=== PATIENT | female | born 1930 | race African-American/Black ===

== ENCOUNTER 2018-10-01 15:00 | Emergency (ER) | payer OTHER, BC ==
[2018-10-01 15:08] VITALS: TEMP 98.8; BMI 28.1
--- NOTE | 2018-10-01 15:42 | PDOC ---
History of Present Illness - General Chief Complaint: Blood Pressure Problem Stated Complaint: LT UNDER PAIN, HIGH BLOOD PRESSURE Time Seen by Provider: 10/01/18 15:12 History Source: Patient - History of Present Illness Initial Comments: 10/01/18 16:14 88F pmh of hypertension presents to the ED for left sided chest wall pain under her left arm. She states that she pulled a muscle 3 weeks ago while lifting a heavy object, saw her doctor bella next day who confirmed she had pulled a muscle. She is back today because she realized that the area had darkened and is now tender. Incidentally she was found to have a elevated blood pressure in triage 229/116. She states that she is compliant to m,edication (Benicar and hydralizine) but that she refuses the additional medication her doctor prescribed her as she's "spending enough time urinating as it is" She denies headache, change in vision, chest pain, neck pain, dysuria. 10/01/18 17:32 Past History - Past Medical History Allergies/Adverse Reactions: Allergies Allergy/AdvReac Type Severity Reaction Status Date / Time benoxinate HCl [From Fluress] Allergy Intermediate Itching Verified 10/01/18 15: 08 fluorescein sodium Allergy Intermediate Itching Verified 10/01/18 15:08 [From Fluress] Penicillins Allergy Mild Rash Verified 10/01/18 15:08 Home Medications: Ambulatory Orders Amlodipine Besylate [Norvasc] 5 mg PO BID 10/02/12 Aspirin 81 mg PO DAILY 10/02/12 Atenolol [Tenormin] 25 mg PO DAILY 10/02/12 Latanoprost [Xalatan] 1 gtt OU HS 10/02/12 Anemia: No Asthma: No Cancer: No Cardiac Disorders: No CVA: No COPD: No CHF: No Dementia: No Diabetes: No GI Disorders: Yes (DIVERTICULOSIS AND COLONIC POLYP) Disorders: No HTN: Yes Hypercholesterolemia: No Liver Disease: No Seizures: No Thyroid Disease: No Other medical history: arthritis - Surgical History Abdominal Surgery: No Appendectomy: No Cardiac Surgery: No Cholecystectomy: No Lung Surgery: No Neurologic Surgery: No Orthopedic Surgery: Yes (RIGHT KNEE ARTHROSCOPIC SURGERY 1996) - Suicide/Smoking/Psychosocial Hx Smoking History: Never smoked Have you smoked in the past 12 months: No Information on smoking cessation initiated: No Hx Alcohol Use: No Drug/Substance Use Hx: No Substance Use Type: None Hx Substance Use Treatment: No Review of Systems - Review of Systems Able to Perform ROS?: Yes Is the patient limited Tajik proficient: No Constitutional: No: Symptoms Reported HEENTM: No: Symptoms Reported Respiratory: No: Symptoms reported Cardiac (ROS): No: Symptoms Reported ABD/GI: No: Symptoms Reported : No: Symptoms Reported Musculoskeletal: Yes: Symptoms Reported, See HPI Integumentary: No: Symptoms Reported Neurological: No: Symptoms reported All Other Systems: Reviewed and Negative *Physical Exam - Vital Signs Last Vital Signs Temp Pulse Resp BP Pulse Ox 98.8 F 74 19 229/116 H 95 10/01/18 15:06 10/01/18 15:06 10/01/18 15:06 10/01/18 15:06 10/01/18 15:06 - Physical Exam General Appearance: Yes: Nourished, Appropriately Dressed. No: Apparent Distress HEENT: positive: EOMI, MELIDA, Normal ENT Inspection Respiratory/Chest: positive: Chest Tender (left submidaxillary 5cm x 5cm ), Lungs Clear, Normal Breath Sounds. negative: Respiratory Distress Cardiovascular: positive: Irregularly Irregular Gastrointestinal/Abdominal: positive: Normal Bowel Sounds, Flat, Soft. negative : Tender Musculoskeletal: positive: Normal Inspection. negative: CVA Tenderness Extremity: positive: Normal Capillary Refill, Normal Inspection, Normal Range of Motion Neurologic: positive: Fully Oriented, Alert, Normal Mood/Affect, Normal Response , Motor Strength 5/5 ED Treatment Course - LABORATORY CBC & Chemistry Diagram: 10/01/18 16:00 10/01/18 16:00 Medical Decision Making - Medical Decision Making 10/01/18 17:54 88 F with chest pain. Found to be hypertensive to >220 systolic in ED. Dissection vs ACS vs CHF Will r/o dissection due to symptoms of Severe hypertension and chest pain however we will also check ekg and trtops as well as cxr and bnp for chf. All labs WNL. CXR has some prominence of mediastinum. Will obtain CTA chest to r/o dissection. 10/01/18 18:55 CTA read pending,. Patient signed out to Dr. Gale *DC/Admit/Observation/Transfer Diagnosis at time of Disposition: Hypertensive urgency - Referrals Referrals: Raz Suggs MD [Primary Care Provider] - - Patient Instructions - Post Discharge Activity
[2018-10-01 16:13] LABS: HEMATOCRIT 36.7 % (32.4-45.2); HEMOGLOBIN 12.4 GM/dL (10.7-15.3); MCH 29.6 pg (25.7-33.7); MCHC 33.8 g/dl (32.0-36.0); MEAN CELL VOLUME 87.4 fl (80-96); MEAN PLT VOLUME 7.8 fl (7.5-11.1); PLATELET COUNT 165 K/MM3 (134-434); RDW 15.9 % (11.6-15.6)
[2018-10-01 16:26] LABS: INR 1.12 (0.83-1.09); PROTHROMBIN TIME (PATIENT) 13.2 SEC (9.7-13.0)
[2018-10-01 17:05] LABS: ALK PHOS 76 U/L (45-117); ANION GAP 8 MMOL/L (8-16); BILIRUBIN,TOTAL 0.5 mg/dL (0.2-1); BLOOD UREA NITROGEN 24 mg/dL (7-18); CHLORIDE 104 mmol/L (98-107); CO2 26 mmol/L (21-32); CREATININE 1.2 mg/dL (0.55-1.3); GLUCOSE,RANDOM 92 mg/dL (74-106); POTASSIUM 4.4 mmol/L (3.5-5.1); SGOT/AST 18 U/L (15-37); SGPT/ALT 15 U/L (13-61); SODIUM 138 mmol/L (136-145); TOT PROT 6.7 g/dl (6.4-8.2)
--- NOTE | 2018-10-01 17:20 | PDOC ---
Documentation entered by Louise Torre SCRIBE, acting as scribe for Humberto Machuca MD. Attending Attestation - Resident Resident Name: Zach Saavedra - ED Attending Attestation I have performed the following: I have examined & evaluated the patient, The case was reviewed & discussed with the resident, I agree w/resident's findings & plan, Exceptions are as noted - HPI HPI: 10/01/18 16:32 The patient is an 88 year old female, with a significant PMH of HTN, who presents to the emergency department for evaluation of left sided chest pain. Pt describes the pain as a "sorenesss" radiating from her L anterior chest to her L armpit. Pt states that it started about 4 days ago. Denies any SOB at rest but endorses WERNER. Denies leg swelling. The patient denies shortness of breath, headache and dizziness. Denies fever, chills, nausea, vomit, diarrhea and constipation. Denies dysuria, frequency, urgency and hematuria. Allergies: benoxinate HCl, fluorescein sodium, penicillin Social history: None reported - Physicial Exam PE: 10/01/18 17:12 "GENERAL: Awake, alert, and fully oriented, in no acute distress. HEAD: No signs of trauma EYES: PERRLA, EOMI, sclera anicteric, conjunctiva clear ENT: Auricles normal inspection, hearing grossly normal, nares patent, oropharynx clear without exudates. Moist mucosa NECK: Nontender, no stepoffs, Normal ROM, supple, no lymphadenopathy, JVD, or masses LUNGS: Breath sounds equal, clear to auscultation bilaterally. No wheezes, and no crackles HEART: Regular rate and rhythm, normal S1 and S2, no murmurs, rubs or gallops ABDOMEN: Soft, nontender, normoactive bowel sounds. No guarding, no rebound. No masses EXTREMITIES: Normal range of motion, no edema. No clubbing or cyanosis. No cords, erythema, or tenderness NEUROLOGICAL: Cranial nerves II through XII intact. 5/5 strength and sensation in all extremities, Normal speech, normal gait, normal cerebellar function SKIN: Warm, Dry, normal turgor, no rashes or lesions noted. - Medical Decision Making 10/01/18 17:12 88 F with chest pain. Found to be hypertensive to >220 systolic in ED. Will need to r/o dissection given severe HTN and chest pain. Will also r/o ACS vs CHF. - Labs, trop, BNP - CTA chest/abd/pelvis 10/01/18 18:01 Labs notable for elevated BNP, trop negative x1 Pt took home hydralazine while in ED, BP now improved to 190s systolic. Will hold further anti-HTN at this time as pt is asymptomatic and this is likely her baseline BP. Humberto Machuca MD: This documentation has been prepared by the Yelitza de la torre Sammi, SCRIBE, under my direction and personally reviewed by me in its entirety. I confirm that the documentation accurately reflects all work, treatment, procedures, and medical decision making performed by me.
[2018-10-01 18:17] LABS: PH,URINE 5.5 (5.0-8.0); URINE APPEARANCE CLEAR; URINE BILIRUBIN NEGATIVE (NEGATIVE); URINE COLOR YELLOW; URINE GLUCOSE (UA) NEGATIVE (NEGATIVE); URINE KETONE NEGATIVE (NEGATIVE); URINE LEUK ESTERASE NEGATIVE (NEGATIVE); URINE NITRITE NEGATIVE (NEGATIVE); URINE PROTEIN NEGATIVE (NEGATIVE); URINE UROBILINOGEN 0.2 mg/dL (0.2-1.0)
--- NOTE | 2018-10-01 19:16 | PDOC ---
*Physical Exam - Vital Signs Last Vital Signs Temp Pulse Resp BP Pulse Ox 98.8 F 74 19 229/116 H 95 10/01/18 15:06 10/01/18 15:06 10/01/18 15:06 10/01/18 15:06 10/01/18 15:06 - Physical Exam Comments: 10/01/18 19:47 Awake, alert, verbal Lungs CLTA B/L S1/S2, no M/R/G Abdomen: no pulsatile mass, soft, non-tender ED Treatment Course - LABORATORY CBC & Chemistry Diagram: 10/01/18 16:00 10/01/18 16:00 - ADDITIONAL ORDERS Additional order review: Laboratory Results 10/01/18 10/01/18 10/01/18 18:00 16:00 16:00 PT with INR INR PTT (Actin FS) Sodium Potassium Chloride Carbon Dioxide Anion Gap BUN Creatinine Creat Clearance w eGFR Random Glucose Calcium Total Bilirubin AST ALT Alkaline Phosphatase Troponin I 0.02 B-Natriuretic Peptide 1476.8 H Total Protein Albumin Urine Color Yellow Urine Appearance Clear Urine pH 5.5 Ur Specific [place] 1.008 L Urine Protein Negative Urine Glucose (UA) Negative Urine Ketones Negative Urine Blood Negative Urine Nitrite Negative Urine Bilirubin Negative Urine Urobilinogen 0.2 Ur Leukocyte Esterase Negative 10/01/18 10/01/18 16:00 16:00 PT with INR 13.20 H INR 1.12 H PTT (Actin FS) 30.0 Sodium 138 Potassium 4.4 Chloride 104 Carbon Dioxide 26 Anion Gap 8 BUN 24 H Creatinine 1.2 Creat Clearance w eGFR 42.40 Random Glucose 92 Calcium 9.0 Total Bilirubin 0.5 AST 18 ALT 15 Alkaline Phosphatase 76 Troponin I B-Natriuretic Peptide Total Protein 6.7 Albumin 4.0 Urine Color Urine Appearance Urine pH Ur Specific [place] Urine Protein Urine Glucose (UA) Urine Ketones Urine Blood Urine Nitrite Urine Bilirubin Urine Urobilinogen Ur Leukocyte Esterase 10/01/18 16:00 RBC 4.20 MCV 87.4 MCHC 33.8 RDW 15.9 H MPV 7.8 Medical Decision Making - Medical Decision Making 10/01/18 19:13 Patient signed out by Dr. Saavedra (Resident) and under the care of Dr. Jimenez ( Attending) The patient is an 88 year old female with chest pain, h/o HTN w/non-adherence to medication. At presentation patient hypertensive (> 220 SBP). S/p home Hydralazine BP 190's; Elevated BNP, Trop (-) x1. Awaiting formal CTA read to r /o dissection 10/01/18 19:[address] Cruz (radiology) - patient has an intramural hematoma in the descending aorta Patient assessed @ bedside, continues deny active chest pain Right BP: 212/98 Left BP: 229/110 2+ radial and DP pulses 10/01/18 19:35 Labetalol 10 mg Esmolol Drip 50 mcg/kg Attending paged CardioThoracic Surgery 10/01/18 19:43 S/p Labetalol BP 179/94 10/01/18 19:48 Case d/w Dr. Wood (Thoracic Surgery) - states patient requires cardio- thoracic surgery; reccomend Dr. Sung ([place]) or transfer to [facility] 10/01/18 20:02 BP 188/94 Clinical condition and risks/benefits of transfer discussed with patient - amenable to transfer 10/01/18 20:09 Case d/w [facility] - recommends vascular as institutional policy to not operate on descending aorta; 10/01/18 20:18 Esmoll drip hanging BP 180/92 - BP goal 140/90 Patient signed transfer paperwork 10/01/18 20:21 Case d/w Vascular Surgery - Dr. Bella; accepts patient for transfer 10/01/18 20:24 Dr. Donahue - CT fellow from [facility]; confirms case should go to vascular 10/01/18 20:26 Case d/w Dr. Altamirano - [facility] ED ([facility] [place]) 10/01/18 20:26 Repeat BP 193/94 10/01/18 20:36 Case d/w Dr. Cortes, [facility] ED - accepts for transfer BP goal MAP of 80 10/01/18 20:43 Case d/w [facility] transfer center Code Red; ETA 20 minutes *DC/Admit/Observation/Transfer Diagnosis at time of Disposition: Hypertensive urgency - Referrals Referrals: Raz Suggs MD [Primary Care Provider] - - Patient Instructions - Post Discharge Activity
[2018-10-01] MEDS ORDERED: LABETALOL HCL 5 MG/1 ML (100MG/20 ML VIAL) IVPUSH ONE (19:30)
[2018-10-01] MEDS ORDERED: LABETALOL HCL 5 MG/1 ML (200MG/40ML VIAL) IVPB ONE (19:35)
[2018-10-01] MEDS ORDERED: ESMOLOL 2500 MG/250 ML 2,500,000 MCG/250 ML INFUS.BAG IVPB SCH (19:45)
--- NOTE | 2018-10-01 19:55 | PDOC ---
*Physical Exam - Vital Signs Last Vital Signs Temp Pulse Resp BP Pulse Ox 98.8 F 74 19 229/116 H 95 10/01/18 15:06 10/01/18 15:06 10/01/18 15:06 10/01/18 15:06 10/01/18 15:06 ED Treatment Course - LABORATORY CBC & Chemistry Diagram: 10/01/18 16:00 10/01/18 16:00 - ADDITIONAL ORDERS Additional order review: Laboratory Results 10/01/18 10/01/18 10/01/18 18:00 16:00 16:00 PT with INR INR PTT (Actin FS) Sodium Potassium Chloride Carbon Dioxide Anion Gap BUN Creatinine Creat Clearance w eGFR Random Glucose Calcium Total Bilirubin AST ALT Alkaline Phosphatase Troponin I 0.02 B-Natriuretic Peptide 1476.8 H Total Protein Albumin Urine Color Yellow Urine Appearance Clear Urine pH 5.5 Ur Specific [place] 1.008 L Urine Protein Negative Urine Glucose (UA) Negative Urine Ketones Negative Urine Blood Negative Urine Nitrite Negative Urine Bilirubin Negative Urine Urobilinogen 0.2 Ur Leukocyte Esterase Negative 10/01/18 10/01/18 16:00 16:00 PT with INR 13.20 H INR 1.12 H PTT (Actin FS) 30.0 Sodium 138 Potassium 4.4 Chloride 104 Carbon Dioxide 26 Anion Gap 8 BUN 24 H Creatinine 1.2 Creat Clearance w eGFR 42.40 Random Glucose 92 Calcium 9.0 Total Bilirubin 0.5 AST 18 ALT 15 Alkaline Phosphatase 76 Troponin I B-Natriuretic Peptide Total Protein 6.7 Albumin 4.0 Urine Color Urine Appearance Urine pH Ur Specific [place] Urine Protein Urine Glucose (UA) Urine Ketones Urine Blood Urine Nitrite Urine Bilirubin Urine Urobilinogen Ur Leukocyte Esterase 10/01/18 16:00 RBC 4.20 MCV 87.4 MCHC 33.8 RDW 15.9 H MPV 7.8 - Medications Given in the ED: ED Medications Discontinued Medications Generic Name Dose Route Start Last Admin Trade Name Freq PRN Reason Stop Dose Admin Labetalol HCl 10 mg 10/01/18 19:30 10/01/18 19:42 Normodyne Injection - IVPUSH 10/01/18 19:31 10 mg ONCE ONE Administration Medical Decision Making - Medical Decision Making 10/01/18 18:[address] Machuca Briefly, pt presents to ED with LSCP, now resolved BP elevated, currently pending CTA dissection protocol 10/01/18 19:[address] Rodriges, pt with subacute to acute descending aortic intramural hematoma New compared to imaging from 2010 Pt re-evaluated, denies pain currently, wants to go home Results of CTA explained to patient who is willing to stay 2nd IV placed RUE BP: 212/98 LUE BP: 229/110, HR 84 Dr. Winchester (thoracic surgery) consulted, awaiting call back Labetalol 10mg IV push given while esmolol gtt prepared, BP down 10/01/18 19:[address] Winchester, recommends transfer to [facility] He recommends MAP of 80 BP down to 179/100, esmolol gtt started at this time, 50mcg/kg/min Pt remains asymptomatic [facility] center is being called at this time 10/01/18 20:30 Pt accepted to [facility] Pt remains asymptomatic BP 168/120, gtt now at 100mcg/kg/min Awaiting transportation (code red) 10/01/18 21:04 BP down to 180/90 HR 50s-60s Remains asymptomatic [facility] team here for transport to [facility] 10/01/18 21:15 No CDs made with images as no blood bank booking clerk today Report provided, images sent to [facility] through PACS [facility] can no longer wait for CD to be made due to code red status Pt transported to [facility] *DC/Admit/Observation/Transfer Diagnosis at time of Disposition: Hypertensive urgency - Discharge Dispostion Disposition: TRANSFER ACUTE CARE/OTHER HOSP - Referrals Referrals: Raz Suggs MD [Primary Care Provider] - - Patient Instructions - Post Discharge Activity - Transfer to Acute Care Facility Receiving Facility: [facility] - Attestations Physician Attestion: 10/01/18 21:05 I, Dr. Jesus Jimenez MD, attest that this document has been prepared under my direction and personally reviewed by me in its entirety. I further attest, that it accurately reflects all work, treatment, procedures and medical decision -making performed by me.
[2018-10-02 02:11] VITALS: BP 170/93; PULSE 56
--- NOTE | 2018-10-02 11:05 | EKG ---
Test Reason : Blood Pressure : / mmHG Vent. 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
== END 2018-10-01 21:30 | disposition short-term general hospital (02) ==
LOC: JER 15:00
PROC: 3E033GC Introduction of Other Therapeutic Substance into Peripheral Vein, Percutaneous Approach (ICD-10-PCS; principal; 2018-10-01)
PROC: 3E033GC Introduction of Other Therapeutic Substance into Peripheral Vein, Percutaneous Approach (ICD-10-PCS; 2018-10-01)
DX: I16.0 Hypertensive urgency (principal); I71.01 Dissection of thoracic aorta; Z87.19 Personal history of other diseases of the digestive system; Z88.0 Allergy status to penicillin; Z88.8 Allergy status to other drugs, medicaments and biological substances
CPT/HCPCS: 36415; 71045-TC-FY; 71275-TC; 74177-TC; 80053; 81003; 83880; 84484; 85027; 85610; 85730; 87086; 93005; 93010; 96374; 96375; 99284-25

== ENCOUNTER 2019-02-04 05:33 | Inpatient (IN) | payer OTHER, BC ==
[2019-02-04 05:46] VITALS: BMI 27.1
--- NOTE | 2019-02-04 05:58 | PDOC ---
Attending Attestation - Resident Resident Name: Phillip Díaz - ED Attending Attestation I have performed the following: I have examined & evaluated the patient, The case was reviewed & discussed with the resident, I agree w/resident's findings & plan - HPI HPI: 02/04/19 06:08 Pt fell in her hallway as she was walking to the bath. She is otherwise ok. States that she hit her left side, the side that was operated on 2 weeks ago. 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 - Physicial Exam PE: 02/04/19 06:09 Agree with resident exam. Pt is afebrile. She has normal mental status. She has swelling in the left leg, s/p surgery. No calf tenderness bilaterlly. Pt has steristreps at the left lateral hip and left lateral knee where she had surgery - Medical Decision Making 02/04/19 06:11 XR hip and femur and XR pelvis Pt will be signed out to the day team and they will aadmit her.
--- NOTE | 2019-02-04 06:15 | PDOC ---
History of Present Illness - General Chief Complaint: Injury Stated Complaint: FALL/PAIN AFTER SURGERY Time Seen by Provider: 02/04/19 05:56 History Source: Patient Exam Limitations: No Limitations - History of Present Illness Initial Comments: 02/04/19 06:08 Gala Jc is an 88F with PMH lung cancer with L femoral mets s/p IM nail placement 2 weeks ago here for fall from standing. Patient went to bathroom this morning with walker but tripped and fell onto her left side in the hallway. Now complains of L hip and buttock pain. Denies prodome sx, LOC, injury to head. Denies injury or pain to ribs, arms, legs. Has follow-up with her ortho surgeon tomorrow, Dr. Colin at [facility]. Past History - Past Medical History Allergies/Adverse Reactions: Allergies Allergy/AdvReac Type Severity Reaction Status Date / Time benoxinate HCl [From Fluress] Allergy Intermediate Itching Verified 02/04/19 05: 46 fluorescein sodium Allergy Intermediate Itching Verified 02/04/19 05:46 [From Fluress] Penicillins Allergy Mild Rash Verified 02/04/19 05:46 Home Medications: Ambulatory Orders Latanoprost [Xalatan] 1 gtt OU HS 10/02/12 Aspirin 81 mg PO DAILY 02/04/19 Hydralazine HCl 25 mg PO BID 02/04/19 Olmesartan Medoxomil [Benicar (Nf)] 40 mg PO DAILY 02/04/19 Anemia: No Asthma: No Cancer: No Cardiac Disorders: No CVA: No COPD: No CHF: No Dementia: No Diabetes: No GI Disorders: Yes (DIVERTICULOSIS AND COLONIC POLYP) Disorders: No HTN: Yes Hypercholesterolemia: No Liver Disease: No Seizures: No Thyroid Disease: No - Surgical History Abdominal Surgery: No Appendectomy: No Cardiac Surgery: No Cholecystectomy: No Lung Surgery: No Neurologic Surgery: No Orthopedic Surgery: Yes (RIGHT KNEE ARTHROSCOPIC SURGERY 1996) - Suicide/Smoking/Psychosocial Hx Smoking History: Never smoked Have you smoked in the past 12 months: No Information on smoking cessation initiated: No Hx Alcohol Use: No Drug/Substance Use Hx: No Substance Use Type: None Hx Substance Use Treatment: No Review of Systems - Review of Systems Able to Perform ROS?: Yes Constitutional: No: Chills, Fever, Weakness HEENTM: No: Blurred Vision, Hearing Loss, Throat Pain, Difficulty Swallowing Respiratory: No: Cough, Orthopnea, Shortness of Breath, Wheezing Cardiac (ROS): No: Chest Pain, Edema ABD/GI: No: Constipated, Diarrhea, Nausea, Vomiting : No: Burning, Dysuria, Discharge, Frequency, Flank Pain, Hematuria Musculoskeletal: Yes: Back Pain (L side), Muscle Pain (L buttock) Neurological: Yes: Unsteady Gait (ambulates with walker). No: Headache, Numbness, Paresthesia, Seizure, Tingling Endocrine: No: Symptoms Reported Hematologic/Lymphatic: No: Symptoms Reported All Other Systems: Reviewed and Negative *Physical Exam - Vital Signs Last Vital Signs Temp Pulse Resp BP Pulse Ox 98.3 F 80 18 140/80 98 02/04/19 05:45 02/04/19 05:45 02/04/19 05:45 02/04/19 05:45 02/04/19 05:45 - Physical Exam General Appearance: Yes: Appropriately Dressed, Thin. No: Apparent Distress HEENT: positive: EOMI, Normal Voice, Symmetrical, Pharynx Normal, Hearing Grossly Normal. negative: Scleral Icterus (R), Scleral Icterus (L), Pharyngeal Erythema, Tonsillar Exudate, Rhinorrhea, Hearing Decreased Neck: positive: Trachea midline, Normal Thyroid, Supple. negative: Decreased range of motion, Lymphadenopathy (R), Lymphadenopathy (L), Tender lateral, Tender midline Respiratory/Chest: positive: Lungs Clear, Normal Breath Sounds. negative: Chest Tender, Respiratory Distress, Crackles, Rales, Rhonchi Cardiovascular: positive: Regular Rhythm, Regular Rate, Murmur. negative: Edema Gastrointestinal/Abdominal: positive: Normal Bowel Sounds, Flat, Soft. negative : Tender, Organomegaly Musculoskeletal: positive: Other (Tenderness to L side to light palpation.). negative: CVA Tenderness Extremity: positive: Normal Capillary Refill, Tender (tender to palpation to L hip and buttock), Pelvis Stable, Other (LLE: more swollen than RLE up to thigh, sensation intact to LT, DP pulse present, unable to lift leg against gravity, ROM limited at hip and knee. LLE: sensation and motor good, full ROM.) Integumentary: positive: Normal Color, Dry, Warm Neurologic: positive: Fully Oriented, Alert, Normal Mood/Affect, Normal Response Medical Decision Making - Medical Decision Making 02/04/19 06:53 Gala Jc is an 88F with PMH lung cancer with L femoral mets s/p IM nail placement 2 weeks ago here for mechanical fall from standing. Given recent surgery and fall on L hip, high concern for hardware failure. Patient is alert and oriented x3 and able to give good history, denies head trauma, CT head not indicated. Will evaluate with pelvic XR, L hip XR, and R humerus XR. If new fx or hardware malfunction, needs to be transferred to [facility] for f/u management. If not, patient can be returned home with f/u tomorrow. Giving 600mg ibuprofen for pain. 02/04/19 06:54 Patient requests phone call to neighbor Bianca ([phone]) to get her cell phone and tell home nurse to not come to her house at 10AM. 02/04/19 07:[address] Kim. Plan as per above. *DC/Admit/Observation/Transfer Diagnosis at time of Disposition: Left hip pain Fall Qualifiers: Encounter type: initial encounter Qualified Code(s): W19.XXXA - Unspecified fall, initial encounter - Referrals - Patient Instructions Printed Discharge Instructions: How to Prevent Falls - Post Discharge Activity
[2019-02-04] MEDS ORDERED: IBUPROFEN 600 MG TABLET (FP) PO ONE ×2 (06:22→06:23)
--- NOTE | 2019-02-04 07:15 | PDOC ---
*Physical Exam - Vital Signs Last Vital Signs Temp Pulse Resp BP Pulse Ox 98.3 F 80 18 140/80 98 02/04/19 05:45 02/04/19 05:45 02/04/19 05:45 02/04/19 05:45 02/04/19 05:45 ED Treatment Course - Medications Given in the ED: ED Medications Discontinued Medications Generic Name Dose Route Start Last Admin Trade Name Tierra PRN Reason Stop Dose Admin Ibuprofen 600 mg 02/04/19 06:22 02/04/19 06:26 Motrin - PO 02/04/19 06:23 600 mg ONCE ONE Administration Medical Decision Making - Medical Decision Making Pt signed out to me by homer Jerome EM Resident. 88F with PMH lung cancer with L femoral mets s/p IM nail placement 2 weeks ago ( performed by Dr. Colin at [facility]) presented to ED for mechanical fall onto left hip. Physical examination: Left LE externally rotated, shortened. Pt unable to lift Left LE off the bed. 2+ DSP bilaterally. Initial Vital Signs Temp Pulse Resp BP Pulse Ox 98.3 F 80 18 140/80 98 02/04/19 05:45 02/04/19 05:45 02/04/19 05:45 02/04/19 05:45 02/04/19 05:45 Afebrile. No tachycardia. No tachypnea. Mild hypertension. No hypoxia on room air. Left femur/hip XR ordered. Pending imaging. Medications given: ibuprofen 600 mg PO once 02/04/19 08:57 XR shows no obvious fracture. CT left lower extremity ordered. 02/04/19 09:04 XR report: Name: [facility] Phys: Irais Ledesma MD : 1930 Age: 88 Sex: F [facility] Acct: [id number] Loc: [address] Exam Date: 02/04/19 Status: REG [place] [address] Unit Number: [id number] EXAM#: TYPE/EXAM : RESULT: RAD/PELVIS Fell rule out fracture. Single AP view of the pelvis. Interval disc space narrowing at L3-4 L4-5 L5- S1. Symmetrical SI joints. The symphysis pubis is not widened. Normal relationship of the femoral heads to the acetabulum. No hip dislocation. Orthopedic hardware is seen in the proximal femur with screws traversing through the femoral into the head. Well- corticated calcification along the lateral surface of the left femoral neck. Demineralized greater trochanter. Radiolucency, osteolysis along the intramedullary anamika is noted. . Reported By: Rick Mendoza MD 02/04/19 0859 XR report: Name: [facility] OF [facility] Phys: Irais Ledesma MD : 1930 Age: 88 Sex: F [facility] Acct: [id number] Loc: [facility] [address] [place] [address] Exam Date: 02/04/19 Status: [facility] [place] [address] Unit Number: [id number] EXAM#: TYPE/EXAM : RESULT: RAD/FEMUR-LEFT Left femur Trauma with fall, status post surgery Status post open reduction internal fixation with left femoral intramedullary anamika, left metallic hip pins and plate and screw fixation proximal one third femur, alignment noted. No fractures in the knee. Atherosclerotic calcifications. No definite signs of hardware failure, no prior images with plate and screws in place to assess for interval change. Impression : Anatomic positioning of the metallic hardware, no definite new fracture or dislocation noted. Reported By: Carlos Escobar MD 02/04/19 0904 02/04/19 10:10 XR with addendum: Name: [facility] OF RADIOLOGY Phys: Irais Ledesma MD : 1930 Age: 88 Sex: F [facility] Acct: [id number] Loc: [place] [address] [place] [address] Exam Date: 02/04/19 [facility]: [facility] [place] [address] Unit Number: [id number] EXAM#: TYPE/EXAM: RESULT: RAD/HIP PELVIS-LEFT ADDENDUM ADDENDUM #1 Addendum to report: Please note that there are no prior postoperative films available for comparison immediately after surgery. It is difficult to determine if there has been disruption of the proximal first and second screws through the lateral margin of the proximal femoral shaft. Orthopedic correlation is recommended. The possibility of loosening of the left femoral plate and screw fixation proximally should be considered. Follow-up with orthopedics recommended. ORIGINAL REPORT Left hip and pelvis Status post surgery with trauma, fall and pain No evidence of acute fracture or dislocation. Metallic left femoral hardware in position. Alignment noted all views. Impression: No evidence of acute fracture or dislocation. Reported By: Carlos Escobar MD 02/04/19 0908 Left hip and pelvis Status post surgery with trauma, fall and pain No evidence of acute fracture or dislocation. Metallic left femoral hardware in position. Alignment noted all views. Impression: No evidence of acute fracture or dislocation. Reported By: Carlos Escobar MD 02/04/[address] imaging. 02/04/19 10:49 CT report: Name: [facility] OF RADIOLOGY Phys: Krunal Raymundo RESIDENT : 1930 Age: 88 Sex: F [facility] Acct: [id number] Loc: [address] Exam Date: 02/04/19 Status: [place] [address] Unit Number: [id number] EXAM#: TYPE/EXAM: RESULT: [id number] CT/LOWER EXTREMITY CT W/O CONTR Status post fall on left hip [address] scan of the left lower extremity Axial scans were obtained from above the level of the left hip joint down to just below the level of the left knee joint. Coronal and sagittal reformatted images were obtained. Compared to prior x-rays of the left hip and femur dated 2018 There are 2 metallic pins/screws in the left femoral neck with an intramedullary anamika extending down to the distal left femur head in a position with a metallic plate, laterally and multiple screws. There is diffuse heterogeneous sclerotic changes in the proximal and mid shaft of the femur there is a slightly displaced fracture involving the lesser trochanter. Focal bone destruction is involving the left iliac bone along superior margin of the left acetabulum with a soft tissue mass measuring 4.5 x 8 cm in AP and transverse dimension compatible with metastasis. There is suggestion of a small joint effusion. Subcutaneous edema, laterally. Moderate to marked degenerative narrowing of the medial left knee joint compartment. In included portion of the pelvis, there is a moderate to large amount of partially included fecal residue in the distal sigmoid colon suggestive of impaction IMPRESSION: Status post open reduction and internal fixation, as described above pain Slightly displaced lesser trochanter fracture is present and possibly a nondisplaced greater trochanter fracture. There is focal bone destruction the left iliac bone along superior margin of the left acetabulum associated with a soft tissue mass consistent with metastasis. There is also diffuse heterogeneous sclerotic changes involving the proximal and mid femoral shaft consistent with bone metastasis. Findings suggestive of distal sigmoid colon stool impaction. Reported By: Luana Mcneill MD 02/04/19 1044 Rodriguez ordered. NPO order placed. 02/04/19 10:59 No phone number available for Dr. Colin. Pt informed of results, reported she does not have any phone number for Dr. Colin, and does not know if that is the correct spelling of his name, now does not know if her surgery was at [facility] or [facility] now. Will call friend on file for more information. 02/04/19 11:06 I spoke with Gale Medina, friend, who stated she believes the surgery was performed at [facility]. She stated she will call a family member and call the ED back with the name of the Orthopedic Surgeon. -[phone] 02/04/19 11:22 I spoke with the health care proxy at bedside now. Ortho - Dr. Marc, Surgery was performed at [facility] Dr. Marc's office paged. They stated he is [place] the [place] but will page the doctors business analyst sales operations. Pending call back and transfer. Pt signed transfer paperwork. 02/04/19 12:10 No return phone call from Dr. Marc's office. Transfer initiated. 02/04/19 12:18 I spoke with Doreen Arshad at [facility], who stated she will contact Dr. Marc' s office/fellows and call back. 02/04/19 12:32 I spoke with Nancy Hagan, director of vocational guidance, at [facility], she requested CT report via email to [employer]. She stated she will forward to Dr. Marc's team and get back to me. Email sent to [email or web address] Dr. Raymundo spoke with Ortho Fellow. 02/04/19 13:43 I spoke with Ortho Resident, who stated Ortho Attending Dr. Padilla reviewed the case, no surgical intervention is indicated as anamika is in place. Pt unable to ambulate. To be admitted for pain control, non-weightbearing status, and rehab/PT. Pt reported she would like PT. Pt and friend updated. Dr. Anaya paged for admission. 02/04/19 15:29 Dr. Raymundo spoke with Dr. Anaya, who agrees with admission. *DC/Admit/Observation/Transfer Diagnosis at time of Disposition: Fracture of lesser trochanter of femur, Greater trochanter fracture, History of left hip replacement, Unable to ambulate Fall Qualifiers: Encounter type: initial encounter Qualified Code(s): W19.XXXA - Unspecified fall, initial encounter - Discharge Dispostion Condition at time of disposition: Stable Decision to Admit order: Yes - Referrals - Patient Instructions Printed Discharge Instructions: How to Prevent Falls - Post Discharge Activity
[2019-02-04] MEDS ORDERED: ACETAMINOPHEN 1000 MG/100 ML VIAL (NON FORMULARY) IVPB ONE (10:51)
[2019-02-04] MEDS ORDERED: ACETAMINOPHEN INJECTION 100 ML IVPB ONE (11:34)
--- NOTE | 2019-02-04 19:55 | HP ---
Admitting History and Physical - Primary Care Physician PCP: Odalis Anaya - Admission History of Present Illness: Gala Jc is an 88F with PMH lung cancer with L femoral mets s/p IM nail placement 2 weeks ago here for fall from standing. Patient went to bathroom this morning with walker but tripped and fell onto her left side in the hallway. Now complains of L hip and buttock pain. Denies prodome sx, LOC, injury to head. Denies injury or pain to ribs, arms, legs. Has follow-up with her ortho surgeon tomorrow, Dr. Colin at [facility]. - Smoking History Smoking history: Never smoked Have you smoked in the past 12 months: No - Alcohol/Substance Use Hx Alcohol Use: No Home Medications - Allergies Allergies/Adverse Reactions: Allergies Allergy/AdvReac Type Severity Reaction Status Date / Time benoxinate HCl [From Fluress] Allergy Intermediate Itching Verified 02/04/19 05: 46 fluorescein sodium Allergy Intermediate Itching Verified 02/04/19 05:46 [From Fluress] Penicillins Allergy Mild Rash Verified 02/04/19 05:46 - Home Medications Home Medications: Ambulatory Orders Latanoprost [Xalatan] 1 gtt OU HS 10/02/12 Aspirin 81 mg PO DAILY 02/04/19 Hydralazine HCl 25 mg PO BID 02/04/19 Olmesartan Medoxomil [Benicar -] 40 mg PO DAILY 02/04/19 Physical Examination Vital Signs: Vital Signs Temperature 97.1 F L 02/04/19 17:24 Pulse Rate 56 L 02/04/19 17:24 Respiratory Rate 18 02/04/19 17:24 Blood Pressure 150/90 02/04/19 17:24 O2 Sat by Pulse Oximetry (%) 97 02/04/19 17:24 Constitutional: Yes: No Distress HENT: Yes: Atraumatic Neck: Yes: Supple Cardiovascular: Yes: Regular Rate and Rhythm Respiratory: Yes: CTA Bilaterally Gastrointestinal: Yes: Normal Bowel Sounds Extremities: Yes: WNL Neurological: Yes: Alert, Oriented Problem List - Problems (1) Fall Assessment/Plan: ortho note reviewed PT Code(s): W19.XXXA - UNSPECIFIED FALL, INITIAL ENCOUNTER Qualifiers: Encounter type: initial encounter Qualified Code(s): W19.XXXA - Unspecified fall, initial encounter (2) Fracture of lesser trochanter of femur Code(s): S72.123A - DISP FX OF LESSER TROCHANTER OF UNSP FEMUR, INIT FOR CLOS FX (3) History of left hip replacement Code(s): Z96.642 - PRESENCE OF LEFT ARTIFICIAL HIP JOINT Assessment/Plan Active Medications Generic Name Dose Route Start Last Admin Trade Name Freq PRN Reason Stop Dose Admin Acetaminophen 650 mg 02/04/19 20:01 Tylenol - PO Q6H PRN FEVER Aspirin 81 mg 02/05/19 10:00 Asa - PO DAILY [facility] Heparin Sodium (Porcine) 5,000 unit 02/04/19 22:00 Heparin - SQ BID [facility] Hydralazine HCl 25 mg 02/04/19 22:00 Apresoline - PO BID [facility] Latanoprost drop 02/04/19 22:00 Xalatan 0.005% Eye Drops - OU HS [facility] Non-Formulary Medication 40 mg 02/05/19 10:00 Olmesartan Medoxomil PO DAILY [facility] Laboratory Tests 02/05/19 02/05/19 02/05/19 06:41 06:41 18:30 WBC 10.3 H RBC 3.91 Hgb 11.6 Hct 34.0 MCV 87.0 MCH 29.5 MCHC 33.9 RDW 16.4 H Plt Count 138 MPV 8.4 Absolute Neuts (auto) 6.2 Neutrophils % 60.0 Neutrophils % (Manual) 62.0 Band Neutrophils % 0.0 Lymphocytes % 28.9 Lymphocytes % (Manual) 28.0 Monocytes % 6.3 Monocytes % (Manual) 5 Eosinophils % 4.1 Eosinophils % (Manual) 5.0 H Basophils % 0.7 Basophils % (Manual) 0.0 Myelocytes % (Man) 0 Promyelocytes % (Man) 0 Blast Cells % (Manual) 0 Nucleated RBC % 0 Metamyelocytes 0 Hypochromia 0 Platelet Estimate Decreased Polychromasia 0 Poikilocytosis 1+ Anisocytosis 1+ Microcytosis 0 Macrocytosis 0 Ovalocytes 1+ Ridgeway Cells 1+ Sodium 142 Potassium 3.4 L Chloride 102 Carbon Dioxide 31 Anion Gap 10 BUN 40.3 H Creatinine 1.4 H Est GFR (CKD-EPI)AfAm 38.78 Est GFR (CKD-EPI)NonAf 33.46 Random Glucose 83 Calcium 12.0 H Total Bilirubin 1.0 AST 24 ALT 13 Alkaline Phosphatase 69 Total Protein 5.4 L Albumin 2.9 L Urine Color Yellow Urine Appearance Cloudy Urine pH 5.0 Ur Specific Higdon 1.020 Urine Protein Trace Urine Glucose (UA) Negative Urine Ketones Negative Urine Blood Trace Urine Nitrite Negative Urine Bilirubin Negative Urine Urobilinogen 0.2 Ur Leukocyte Esterase 1+ H Urine WBC (Auto) 13 Urine RBC (Auto) 10 Urine Casts (Auto) 17 U Pathogenic Cast Auto U Epithel Cells (Auto) 11.6 U Sm Round Cell (Auto) None Urine Bacteria (Auto) 3.9
[2019-02-04] MEDS ORDERED: hydrALAZINE HCL 25 MG TABLET (FP) ONE (22:25)
[2019-02-04] MEDS ORDERED: HEPARIN NA (PORCINE) 5,000 UNITS/ML 1ML VIAL ONE (22:26)
[2019-02-04] MEDS: HEPARIN NA (PORCINE) 5,000 UNITS/ML 1ML VIAL SQ SCH (22:38)
[2019-02-04] MEDS: hydrALAZINE HCL 25 MG TABLET (FP) PO SCH (22:38)
[2019-02-04] MEDS: LATANOPROST 0.005% OPHTH SOLN 2.5ML BOTTLE OU SCH (22:38)
[2019-02-05 07:38] LABS: BASO % 0.7 % (0-2.0); EOS % 4.1 % (0-4.5); HEMOGLOBIN 11.6 GM/dL (10.7-15.3); LYMPH % 28.9 % (8-40); MCH 29.5 pg (25.7-33.7); MCHC 33.9 g/dl (32.0-36.0); MEAN PLT VOLUME 8.4 fl (7.5-11.1); MONO % 6.3 % (3.8-10.2); PLATELET COUNT 138 K/MM3 (134-434); RBC 3.91 M/mm3 (3.60-5.2); RDW 16.4 % (11.6-15.6); WHITE BLOOD COUNT 10.3 K/mm3 (4.0-10.0)
[2019-02-05 08:11] LABS: ALBUMIN 2.9 g/dl (3.4-5.0); BLOOD UREA NITROGEN 40.3 mg/dL (7-18); CREATININE 1.4 mg/dL (0.55-1.3); POTASSIUM 3.4 mmol/L (3.5-5.1); TOT PROT 5.4 g/dl (6.4-8.2)
--- NOTE | 2019-02-05 09:30 | PN ---
Progress Note (short form) - Note Progress Note: Pt seen and examined. In short, she is an 88 year old F pt with a recent diagnosis of metastatic lung CA to the left femur. She believes she did not have a fracture, but had the left femur prophylactically rodded about 2 weeks ago at [facility]. She went to [facility] short term rehab, did well , then went home where she fell. She c/o pain in the left femur, so was admitted to [facility] for further work up. X-rays Of the left femur, hip, pelvis show a well positioned long intramedullary anamika in the left femur with fixation into the femoral neck, and a smaller side plate and screws. There is also diffuse intramedullary metastatic CA mets. No obvious fracture. CT scan Of the pelvis and left hip show possible nondisplaced fractures of the left greater and/or lesser trochanter. PE LLE is grossly NVI. Lateral incisions look good, no drainage, steri strips in place, no signs of infection. Intact PF, DF, Inversion, Eversion of the left ankle, foot, toes. Limited ROM of the left knee, consistent with 2 weeks post op. In no pain when lying in bed. Imp 88 year old F pt with diffuse L femur lung CA mets, s/p IM anamika and post- op fall, doing well, no disruption of the hardware. No surgery needed at this time. Rec P.T., WBAT with walker and assistance. F/U PRN
[2019-02-05] MEDS: hydrALAZINE HCL 25 MG TABLET (FP) PO SCH ×2 (10:17→21:28)
[2019-02-05] MEDS: VALSARTAN 160 MG TABLET (UD) PO SCH (10:17)
[2019-02-05] MEDS: HEPARIN NA (PORCINE) 5,000 UNITS/ML 1ML VIAL SQ SCH ×2 (10:17→21:29)
[2019-02-05] MEDS: ASPIRIN 81 MG CHEWABLE TABLETS PO SCH (10:17)
[2019-02-05 13:09] LABS: ANISOCYTOSIS 1+; MACROCYTOSIS 0; OVALOCYTE 1+; PLATELET ESTIMATE DECREASED
--- NOTE | 2019-02-05 16:50 | PN ---
Progress Note, Physician - Current Medication List Current Medications: Active Medications Acetaminophen (Tylenol -) 650 mg PO Q6H PRN PRN Reason: FEVER Aspirin (Asa -) 81 mg PO DAILY [facility] Last Admin: 02/05/19 10:17 Dose: 81 mg Heparin Sodium (Porcine) (Heparin -) 5,000 unit SQ BID [facility] Last Admin: 02/05/19 10:17 Dose: 5,000 unit Hydralazine HCl (Apresoline -) 25 mg PO BID [facility] Last Admin: 02/05/19 10:17 Dose: 25 mg Latanoprost (Xalatan 0.005% Eye Drops -) 1 drop OU HS [facility] Last Admin: 02/04/19 22:38 Dose: Not Given Valsartan (Diovan -) 320 mg PO DAILY [facility] Last Admin: 02/05/19 10:17 Dose: 320 mg - Objective Vital Signs: Vital Signs Temperature 98.2 F 02/05/19 14:29 Pulse Rate 69 02/05/19 14:29 Respiratory Rate 18 02/05/19 14:29 Blood Pressure 127/72 02/05/19 14:29 O2 Sat by Pulse Oximetry (%) 98 02/04/19 22:37 Constitutional: Yes: No Distress HENT: Yes: Atraumatic Neck: Yes: Supple Cardiovascular: Yes: Regular Rate and Rhythm Respiratory: Yes: CTA Bilaterally Gastrointestinal: Yes: Normal Bowel Sounds Extremities: Yes: WNL Edema: No Peripheral Pulses WNL: Yes Neurological: Yes: Alert, Oriented Labs: CBC, BMP 02/05/19 06:41 02/05/19 06:41 Problem List - Problems (1) Fall Assessment/Plan: ortho note reviewed PT dc home Code(s): W19.XXXA - UNSPECIFIED FALL, INITIAL ENCOUNTER Qualifiers: Encounter type: initial encounter Qualified Code(s): W19.XXXA - Unspecified fall, initial encounter (2) Fracture of lesser trochanter of femur Code(s): S72.123A - DISP FX OF LESSER TROCHANTER OF UNSP FEMUR, INIT FOR CLOS FX (3) History of left hip replacement Code(s): Z96.642 - PRESENCE OF LEFT ARTIFICIAL HIP JOINT
[2019-02-05 19:53] LABS: EPI CELLS 11.6 /HPF (0-5/HPF); HYALINE CASTS 17 /lpf (0-8); URINE APPEARANCE CLOUDY; URINE BACTERIA 3.9 /hpf (NEGATIVE); URINE BILIRUBIN NEGATIVE (NEGATIVE); URINE COLOR YELLOW; URINE GLUCOSE (UA) NEGATIVE (NEGATIVE); URINE KETONE NEGATIVE (NEGATIVE); URINE LEUK ESTERASE 1+ (NEGATIVE); URINE NITRITE NEGATIVE (NEGATIVE); URINE PROTEIN TRACE (NEGATIVE); URINE RBC 10 /hpf (0-4); URINE UROBILINOGEN 0.2 mg/dL (0.2-1.0); URINE WBC 13 /hpf (0-5)
[2019-02-05] MEDS: LATANOPROST 0.005% OPHTH SOLN 2.5ML BOTTLE OU SCH (21:46)
[2019-02-06] MEDS: ASPIRIN 81 MG CHEWABLE TABLETS PO SCH (10:33)
[2019-02-06] MEDS: HEPARIN NA (PORCINE) 5,000 UNITS/ML 1ML VIAL SQ SCH ×2 (10:33→21:35)
[2019-02-06] MEDS: hydrALAZINE HCL 25 MG TABLET (FP) PO SCH ×2 (10:33→21:37)
[2019-02-06] MEDS: VALSARTAN 160 MG TABLET (UD) PO SCH (10:33)
--- NOTE | 2019-02-06 11:11 | PN ---
Progress Note (short form) - Note Progress Note: Ortho Pt seen and examined s/p left IM anamika for metastatic lung CA- doing well Selected Entries 02/06/19 10:00 Temperature 97.7 F Pulse Rate 70 Respiratory 16 Rate Blood Pressure 155/82 Laboratory Tests 02/05/19 06:41 WBC 10.3 H Hgb 11.6 Hct 34.0 Plt Count [address], incision healing well, calf soft, nt nvi a/p PT wbat orthopedically stable f/u with ortho surgeon who performed surgery after d/c re-consult prn d/w Dr. Keys
[2019-02-06] MEDS: ACETAMINOPHEN 325 MG TABLET (FP) PO PRN ×2 (12:58→21:36)
--- NOTE | 2019-02-06 19:29 | PN ---
Progress Note, Physician - Current Medication List Current Medications: Active Medications Acetaminophen (Tylenol -) 650 mg PO Q6H PRN PRN Reason: FEVER Last Admin: 02/06/19 12:58 Dose: 650 mg Aspirin (Asa -) 81 mg PO DAILY [facility] Last Admin: 02/06/19 10:33 Dose: 81 mg Heparin Sodium (Porcine) (Heparin -) 5,000 unit SQ BID [facility] Last Admin: 02/06/19 10:33 Dose: 5,000 unit Hydralazine HCl (Apresoline -) 25 mg PO BID [facility] Last Admin: 02/06/19 10:33 Dose: 25 mg Latanoprost (Xalatan 0.005% Eye Drops -) 1 drop OU HS [facility] Last Admin: 02/05/19 21:46 Dose: 1 drop Valsartan (Diovan -) 320 mg PO DAILY [facility] Last Admin: 02/06/19 10:33 Dose: 320 mg - Objective Vital Signs: Vital Signs Temperature 97.6 F 02/06/19 19:18 Pulse Rate 77 02/06/19 19:18 Respiratory Rate 18 02/06/19 19:18 Blood Pressure 149/89 02/06/19 19:18 O2 Sat by Pulse Oximetry (%) 100 02/06/19 09:00 Constitutional: Yes: No Distress HENT: Yes: Atraumatic Neck: Yes: Supple Cardiovascular: Yes: Regular Rate and Rhythm Respiratory: Yes: CTA Bilaterally Gastrointestinal: Yes: Normal Bowel Sounds Extremities: Yes: WNL Edema: No Neurological: Yes: Alert, Oriented Labs: CBC, BMP 02/05/19 06:41 02/05/19 06:41 Problem List - Problems (1) Fall Assessment/Plan: ortho note reviewed PT Code(s): W19.XXXA - UNSPECIFIED FALL, INITIAL ENCOUNTER Qualifiers: Encounter type: initial encounter Qualified Code(s): W19.XXXA - Unspecified fall, initial encounter (2) Fracture of lesser trochanter of femur Code(s): S72.123A - DISP FX OF LESSER TROCHANTER OF UNSP FEMUR, INIT FOR CLOS FX (3) History of left hip replacement Code(s): Z96.642 - PRESENCE OF LEFT ARTIFICIAL HIP JOINT
[2019-02-06] MEDS: LATANOPROST 0.005% OPHTH SOLN 2.5ML BOTTLE OU SCH (21:36)
[2019-02-07] MEDS: ASPIRIN 81 MG CHEWABLE TABLETS PO SCH (09:45)
[2019-02-07] MEDS: VALSARTAN 160 MG TABLET (UD) PO SCH (09:45)
[2019-02-07] MEDS: hydrALAZINE HCL 25 MG TABLET (FP) PO SCH ×2 (09:45→21:38)
[2019-02-07] MEDS: HEPARIN NA (PORCINE) 5,000 UNITS/ML 1ML VIAL SQ SCH ×2 (09:45→21:38)
--- NOTE | 2019-02-07 16:54 | PN ---
Progress Note, Physician - Current Medication List Current Medications: Active Medications Acetaminophen (Tylenol -) 650 mg PO Q6H PRN PRN Reason: FEVER Last Admin: 02/06/19 21:36 Dose: 650 mg Aspirin (Asa -) 81 mg PO DAILY [facility] Last Admin: 02/07/19 09:45 Dose: 81 mg Heparin Sodium (Porcine) (Heparin -) 5,000 unit SQ BID [facility] Last Admin: 02/07/19 09:45 Dose: 5,000 unit Hydralazine HCl (Apresoline -) 25 mg PO BID [facility] Last Admin: 02/07/19 09:45 Dose: 25 mg Latanoprost (Xalatan 0.005% Eye Drops -) 1 drop OU HS [facility] Last Admin: 02/06/19 21:36 Dose: 1 drop Valsartan (Diovan -) 320 mg PO DAILY [facility] Last Admin: 02/07/19 09:45 Dose: 320 mg - Objective Vital Signs: Vital Signs Temperature 98.8 F 02/07/19 14:30 Pulse Rate 91 H 02/07/19 14:30 Respiratory Rate 20 02/07/19 14:30 Blood Pressure 117/63 02/07/19 14:30 O2 Sat by Pulse Oximetry (%) 99 02/07/19 09:00 Constitutional: Yes: No Distress HENT: Yes: Atraumatic Neck: Yes: Supple Cardiovascular: Yes: Regular Rate and Rhythm Respiratory: Yes: CTA Bilaterally Gastrointestinal: Yes: Normal Bowel Sounds Extremities: Yes: WNL Edema: No Neurological: Yes: Alert, Oriented Labs: CBC, BMP 02/05/19 06:41 02/05/19 06:41 Problem List - Problems (1) Fall Assessment/Plan: ortho note reviewed PT Code(s): W19.XXXA - UNSPECIFIED FALL, INITIAL ENCOUNTER Qualifiers: Encounter type: initial encounter Qualified Code(s): W19.XXXA - Unspecified fall, initial encounter (2) Fracture of lesser trochanter of femur Code(s): S72.123A - DISP FX OF LESSER TROCHANTER OF UNSP FEMUR, INIT FOR CLOS FX (3) History of left hip replacement Code(s): Z96.642 - PRESENCE OF LEFT ARTIFICIAL HIP JOINT
[2019-02-07] MEDS: ACETAMINOPHEN 325 MG TABLET (FP) PO PRN (19:58)
[2019-02-07] MEDS: LATANOPROST 0.005% OPHTH SOLN 2.5ML BOTTLE OU SCH (21:39)
[2019-02-08] MEDS: ACETAMINOPHEN 325 MG TABLET (FP) PO PRN (05:31)
[2019-02-08] MEDS: VALSARTAN 160 MG TABLET (UD) PO SCH (09:25)
[2019-02-08] MEDS: HEPARIN NA (PORCINE) 5,000 UNITS/ML 1ML VIAL SQ SCH (09:26)
[2019-02-08] MEDS: hydrALAZINE HCL 25 MG TABLET (FP) PO SCH (09:26)
[2019-02-08] MEDS: ASPIRIN 81 MG CHEWABLE TABLETS PO SCH (09:26)
[2019-02-08 10:30] VITALS: BP 148/75; PULSE 73; TEMP 97.1
--- NOTE | 2019-02-08 11:39 | PN ---
Progress Note, Physician - Current Medication List Current Medications: Active Medications Acetaminophen (Tylenol -) 650 mg PO Q6H PRN PRN Reason: FEVER Last Admin: 02/08/19 05:31 Dose: 650 mg Aspirin (Asa -) 81 mg PO DAILY [facility] Last Admin: 02/08/19 09:26 Dose: 81 mg Heparin Sodium (Porcine) (Heparin -) 5,000 unit SQ BID [facility] Last Admin: 02/08/19 09:26 Dose: 5,000 unit Hydralazine HCl (Apresoline -) 25 mg PO BID [facility] Last Admin: 02/08/19 09:26 Dose: 25 mg Latanoprost (Xalatan 0.005% Eye Drops -) 1 drop OU HS [facility] Last Admin: 02/07/19 21:39 Dose: 1 drop Valsartan (Diovan -) 320 mg PO DAILY [facility] Last Admin: 02/08/19 09:25 Dose: 320 mg - Objective Vital Signs: Vital Signs Temperature 97.1 F L 02/08/19 10:00 Pulse Rate 73 02/08/19 10:00 Respiratory Rate 18 02/08/19 10:00 Blood Pressure 148/75 02/08/19 10:00 O2 Sat by Pulse Oximetry (%) 98 02/08/19 09:00 Constitutional: Yes: No Distress HENT: Yes: Atraumatic Neck: Yes: Supple Cardiovascular: Yes: Regular Rate and Rhythm Respiratory: Yes: CTA Bilaterally Gastrointestinal: Yes: Normal Bowel Sounds Extremities: Yes: WNL Edema: No Peripheral Pulses WNL: Yes Neurological: Yes: Alert, Oriented Labs: CBC, BMP 02/05/19 06:41 02/05/19 06:41 Problem List - Problems (1) Fall Assessment/Plan: ortho note reviewed PT Code(s): W19.XXXA - UNSPECIFIED FALL, INITIAL ENCOUNTER Qualifiers: Encounter type: initial encounter Qualified Code(s): W19.XXXA - Unspecified fall, initial encounter (2) Fracture of lesser trochanter of femur Code(s): S72.123A - DISP FX OF LESSER TROCHANTER OF UNSP FEMUR, INIT FOR CLOS FX (3) History of left hip replacement Code(s): Z96.642 - PRESENCE OF LEFT ARTIFICIAL HIP JOINT
--- NOTE | 2019-02-11 21:07 | DS ---
Physical Examination Vital Signs: Vital Signs Temperature 97.1 F L 02/08/19 10:00 Pulse Rate 73 02/08/19 10:00 Respiratory Rate 18 02/08/19 10:00 Blood Pressure 148/75 02/08/19 10:00 O2 Sat by Pulse Oximetry (%) 98 02/08/19 09:00 Labs: CBC, BMP 02/05/19 06:41 02/05/19 06:41 Discharge Summary Reason For Visit: HX OF LT HIP REPLACEMENT/FX OF GREATER/LESSER Condition: Stable - Instructions Diet, Activity, Other Instructions: see your surgeon in 3-5 days Disposition: [facility] FACILITY - Home Medications Comprehensive Discharge Medication List: Ambulatory Orders Latanoprost [Xalatan] 1 gtt OU HS 10/02/12 Aspirin 81 mg PO DAILY 02/04/19 Hydralazine HCl 25 mg PO BID 02/04/19 Olmesartan Medoxomil [Benicar -] 40 mg PO DAILY 02/04/19 dc snf
== END 2019-02-08 11:45 | DRG 536 ==
LOC: JER 05:33 → JERBED 13:46 → J7W 02-05 00:19
PROVIDERS: ADMIT Internal Medicine; ATTEND Internal Medicine
DX: S72.125A Nondisplaced fracture of lesser trochanter of left femur, initial encounter for closed fracture (principal); C79.51 Secondary malignant neoplasm of bone; C34.90 Malignant neoplasm of unspecified part of unspecified bronchus or lung; Z96.642 Presence of left artificial hip joint; W19.XXXA Unspecified fall, initial encounter; Y93.9 Activity, unspecified; Y92.89 Other specified places as the place of occurrence of the external cause; Y99.9 Unspecified external cause status
CPT/HCPCS: 36415; 72170-TC-FY; 73523-TC-FY; 73552-TC-LT-FY; 73700-TC-RT; 80053; 81003; 85025; 87086; 97116-GP; 97162-GP; 99283-25; J0131; J1644